=== PATIENT | female | born 1965 | race Caucasian/White ===

== ENCOUNTER → 2021-01-05 | Outpatient (CLI) | payer BC | LOC: HEART 5 09:55 | DX: J44.9 Chronic obstructive pulmonary disease, unspecified (principal); R94.2 Abnormal results of pulmonary function studies; F17.210 Nicotine dependence, cigarettes, uncomplicated | CPT/HCPCS: 94060; 94729 ==

== ENCOUNTER → 2021-01-21 | Outpatient (CLI) | payer BC | LOC: KOH-I 01-18 13:30 | DX: Z72.0 Tobacco use (principal); R91.1 Solitary pulmonary nodule | CPT/HCPCS: 71271 ==